=== PATIENT | female | born 1990 | race Hispanic/Latino ===

== ENCOUNTER 2021-08-17 10:29 | Emergency (ER) | payer OTHER, SELFPAY ==
--- NOTE | ~2021-08-17 | XR_ITS ---
EXAMINATION: XR hand RT min 3V EXAM DATE: 08/17/2021 10:46 INDICATION: Injured right hand punching a punching bag . TECHNIQUE: Right hand frontal, lateral and oblique projections obtained and reviewed. There is no pr ior study for comparison. FINDINGS: There is acute posttraumatic right 5th metacarpal shaft fracture with about 56 degrees of v olar angulation. No significant displacement. Skin overlying fracture site appears to be intact, prob ably closed fracture. There is overlying soft tissue swelling. IMPRESSION: Right 5th metacarpal shaft fracture, volar angulation. Reviewed, dictated and finalized at location B.
[2021-08-17 10:39] VITALS: BP 124/69; PULSE 76; RESP 16; TEMP 36.9; O2SAT 100
--- NOTE | 2021-08-17 11:14 | ED.UPPEXIN ---
HPI - Extremity Injury (Upper) General Chief Complaint: Extremity Injury, Upper Stated Complaint: INJURED R HAND Time Seen by Provider: 08/17/21 11:00 Source: patient, RN notes reviewed and old records reviewed Mode of arrival: ambulatory Limitations: no limitations History of Present Illness HPI narrative: 31 year old female who present to [facility] care with complaints of injury to her right hand which she states occurred when she was punching a punching bag last night around 2029. Patient does admit she was mad and upset when she was punching the bag, abrasions noted to 2nd and 3rd dorsal finger area, swelling ecchymosis along the dorsal aspect of her right hand at 4th and 5th metacarpals. 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 Patient states some concern that she has been without her control for the past 2 weeks over difficulty with insurance and urine test negative in clinic, states she is on continuous oral control does not have menses. Patient has been icing her hand and did take ibuprofen last night MD complaint: injury to: right and hand Onset (ago): day(s) (last pm at 2029) Other Extremity Injury: Right: hand (over dorsal 5th metacarpal) Other injuries: none Place: home Severity scale (1-10): 6 Relieving factors: cold therapy, medication and rest Exacerbating factors: movement of extremity Context: direct blow Treatments prior to arrival: cold therapy and NSAIDS Related Data Home Medications Medication Instructions Recorded Confirmed fluoxetine 08/17/21 Allergies Allergy/AdvReac Type Severity Reaction Status Date / Time No Known Allergies Allergy Verified 08/17/21 10:41 Review of Systems Review of Systems: CONSTITUTIONAL: Denies fever, chills, or sweats. EYES: Denies visual changes, redness, or discharge. ENT: Denies rhinorrhea, congestion, sore throat, or otalgia. CARDIOVASCULAR: Denies chest pain, palpitations, or edema. RESPIRATORY: Denies cough or dyspnea. GASTROINTESTINAL: Denies abdominal pain, nausea, vomiting, or diarrhea. GENITOURINARY: Denies dysuria or hematuria. SKIN: Denies rash or itching. MUSCULOSKELETAL: Denies back pain, positive for right fifth metacarpal joint pain, or myalgia. NEUROLOGIC: Denies headache, numbness, or weakness. PSYCHIATRIC: Positive for history of anxiety or depression. All systems reviewed & are unremarkable except as noted in HPI and below PMFSH Past Medical History Medical History (Updated 08/17/21 @ 12:25 by Kaycee Garrett NP) Anxiety Surgical History Surgical History (Updated 08/17/21 @ 12:25 by Kaycee Garrett NP) No history of previous surgery Family History Family History (Updated 08/17/21 @ 12:26 by Kaycee Garrett NP) Mother Hypertension Grandparent Pancreatic cancer Alzheimers disease Other Breast cancer Social History Social History (Updated 08/17/21 @ 12:27 by Kaycee Garrett NP) Smoking status: Never smoker Alcohol intake: current Alcohol use details: social Substance use: never Substance use type: does not use Living arrangements: with family Gender identity (if verbalized by the patient): Female Comments At time of signature, agree with nursing past medical, surgical, social and family history. There is no relevant family history pertinent to the presenting complaint Exam Narrative: GENERAL: Well-appearing, well-nourished, and in no acute distress. HEAD: Normocephalic, atraumatic. EYES: PERRLA and EOMI. ENT: Nares clear, no rhinorrhea or epistaxis. Mucous membranes moist.TM's normal with good light reflex, throat pink with no lesions, exudates or tonsil swelling. NECK: Supple. no lymphadenopathy CHEST: Clear to auscultation. No respiratory distress. SAO2 100% on room air HEART: Regular rate and rhythm. No murmur heard. Normal peripheral pulses. ABDOMEN: Soft, nontender, nondistended, normal active bowel
== END 2021-08-17 12:19 | disposition home or self-care (01) ==
PROVIDERS: Emergency Provider Registered Nurse
DX: S62.326A Displaced fracture of shaft of fifth metacarpal bone, right hand, initial encounter for closed fracture (principal); W22.8XXA Striking against or struck by other objects, initial encounter
CPT/HCPCS: 29125; 73130; 81025; 99214; G0463

== ENCOUNTER 2022-02-18 16:57 | Outpatient (CLI) | payer OTHER, SELFPAY ==
[2022-02-18 17:47] LABS: Hematocrit 33.7 % (37.0-47.0); Hemoglobin 12.1 g/dL (12.0-15.0); Mean Corpuscular HGB Conc 35.9 g/dl (32-36); Mean Corpuscular Hemoglobin 33.7 pg (26-34); Mean Corpuscular Volume 93.9 fl (80-100); Mean Platelet Volume 10.8 fl (7.4-10.4); Platelet Count Result 166 k/mm3 (150-375); Red Blood Count 3.59 M/mm3 (4.2-5.4); Red Cell Distribution Width 12.2 % (11.5-14.5); White Blood Count 7.7 K/mm3 (4.5-10.0)
[2022-02-18 18:29] LABS: Hepatitis B Surface Antigen Negative (Negative); Rubella IgG Antibody 85.1 IU/ML
[2022-02-18 18:38] LABS: HIV 1/2 Ab P24 Ag Result Negative (Negative)
[2022-02-19 15:25] LABS: Rapid Plasma Reagin Non-Reactive (NonReactive)
== END 2022-02-18 16:58 | disposition home or self-care (01) ==
PROVIDERS: Visit Provider Obstetrics & Gynecology
DX: Z34.90 Encounter for supervision of normal pregnancy, unspecified, unspecified trimester (principal); Z3A.00 Weeks of gestation of pregnancy not specified
CPT/HCPCS: 36415; 85027; 86592; 86703; 86762; 86850; 86900; 86901; 87340; G0432

== ENCOUNTER 2022-04-10 12:46 | Outpatient (CLI) | payer OTHER, SELFPAY ==
--- NOTE | ~2022-04-10 | US_ITS ---
EXAMINATION: US OB /maternal detail DATE: 04/10/2022 14:12 INDICATION: survey TECHNIQUE: Multiple obstetric sonographic images performed. FINDINGS: No prior studies for comparison. There is a single living fetus in vertex presentation. The placenta is anterior without placenta pre via. Placental margin measures 4.1 cm to the cervix. Amniotic fluid volume is subjectively normal. Ce rvical length is 3 cm. Placental lakes are noted. cardiac activity and movement is noted with a heart rate of 153 beats per minute. The following anatomy was identified as normal: 4 chamber heart 3 vessel cord cord insertion kidneys urinary bladder stomach spine diaphragm ventricles cisterna magna cerebellum The following biometric data were obtained: BPD: 47mm corresponds to gestational age 20 weeks 2 days. Head circumference: 175 mm corresponds to gestational age 20 weeks 0 days. Abdominal circumference: 156 mm corresponds to gestational age 20 weeks 5 days. Femur length: 34 mm corresponds to gestational age 20 weeks 6 days. Head circumference to abdominal circumference ratio: 1.13 (normal range for expected gestational age is 1.07-1.25). Estimated weight: 370 grams +/- 55 grams using Hadlock method, 87.6%. IMPRESSION: 1: Single living intrauterine with an estimated gestational age of 20weeks 3days by current ultrasound measurements, with an EDC of 08/25/2022 in vertex presentation. 2. Normal survey. Reviewed, dictated and finalized at location A. RN KEEPER IMPRESSION: 1: Single living intrauterine with an estimated gestational age of 20 weeks 3days by current ultrasound measurements, with an EDC of 08/25/2022 in ve rtex presentation. 2. Normal survey.
== END 2022-04-10 12:47 | disposition home or self-care (01) ==
PROVIDERS: Visit Provider Obstetrics & Gynecology
DX: Z36.89 Encounter for other specified antenatal screening (principal); Z3A.20 20 weeks gestation of pregnancy
CPT/HCPCS: 76805

== ENCOUNTER 2022-05-28 10:24 | Outpatient (CLI) | payer OTHER, SELFPAY ==
[2022-05-28 11:47] LABS: Hematocrit 38.4 % (37.0-47.0); Hemoglobin 13.2 g/dL (12.0-15.0)
[2022-05-28 12:00] LABS: Glucose 1 Hour PP 50gm Dose 108 mg/dL
[2022-05-28 12:41] LABS: HIV 1/2 Ab P24 Ag Result Negative (Negative)
== END 2022-05-28 10:25 | disposition home or self-care (01) ==
LOC: ANHLAB 10:27
PROVIDERS: Visit Provider Obstetrics & Gynecology
DX: Z34.90 Encounter for supervision of normal pregnancy, unspecified, unspecified trimester (principal); Z3A.00 Weeks of gestation of pregnancy not specified
CPT/HCPCS: 36415; 82947; 85014; 85018; 86703; G0432

== ENCOUNTER 2022-08-18 16:12 | Inpatient (IN) | payer OTHER, SELFPAY ==
[2022-08-18] VITALS (25 sets, daily range): BP systolic 100–157; BP diastolic 79–123; PULSE 54–117; RESP 16–18; TEMP 36.8–37.4; O2SAT 88–100
[2022-08-18] MEDS: LACTATED RINGERS 1,000 ML 125 ML IV CONT (16:56)
[2022-08-18] MEDS: OXYTOCIN 30 UNITS/NS 500 ML 30 UNITS/500 ML BAG 999 UNITS IV CONT (16:57)
[2022-08-18 16:58] LABS: Basophils Absolute Auto 0.1 K/mm3 (0.0-0.1); Basophils Percent Auto 0.6 % (0.2-1.2); Eosinophils Absolute Auto 0.3 K/mm3 (0-0.3); Eosinophils Percent Auto 2.9 % (0-4.4); Hematocrit 39.3 % (37.0-47.0); Hemoglobin 13.9 g/dL (12.0-15.0); Immature Granulocyte Absolute 0.09 K/mm3 (0.00-0.031); Immature Platelet Fraction Pct 18.6 % (0.9-11.2); Lymphocytes Percent Auto 25.6 % (18.3-44.2); Mean Corpuscular HGB Conc 35.4 g/dl (32-36); Mean Corpuscular Hemoglobin 32.9 pg (26-34); Mean Corpuscular Volume 92.9 fl (80-100); Mean Platelet Volume 13.3 fl (7.4-10.4); Monocytes Absolute Auto 0.7 K/mm3 (0.1-0.6); Monocytes Percent Auto 7.9 % (2.6-8.5); Neutrophils Absolute Auto 5.3 K/mm3 (1.3-6.7); Platelet Count Result 141 k/mm3 (150-375); Red Blood Count 4.23 M/mm3 (4.2-5.4); Red Cell Distribution Width 12.1 % (11.5-14.5); White Blood Count 8.6 K/mm3 (4.5-10.0)
[2022-08-18] MEDS: LIDOCAINE HCL 1% LOCAL INJ 20 ML VIAL (16:59)
--- NOTE | 2022-08-18 17:47 | WPDOBADMIT ---
Obstetrics - Admit Note Admission Note: record reviewed. Additions to the history and/or subsequent changes in the physical findings follow. 32 y/o G1 at 38 3/7 weeks here with contractions since 1 pm. On arrival to the hospital at 1620 the cervix was 9 cm. AVSS NST reactive with variable decelerations TOCO: contractions every 3 min ABD soft, nontender, gravid, vertex EXT nontender Cervix C/+2 A: IUP at term, active labor. P: Begin pushing.
--- NOTE | 2022-08-18 17:48 | PM.OBPRVD ---
OB - Delivery Note Procedure Delivery date: 08/18/22 Procedure: Induction method: None Delivery augmentation: Rupture of Membranes Delivery monitor: External FHT and External Uterine Route of delivery: Laceration Description: Labial Delivery repair: vicryl (3-0) Specimen: Yes (cord blood) Quantitative Blood Loss (ml): 220 Anesthesia type: Local (1% lidocaine) Disposition: PACU Complications: None Narrative: 32 y/o G1 at 38 3/7 weeks gestation who presented to the hospital with contractions. Cervix 9 cm on admission. Her labor progressed and her cervix dilated completely. She pushed with good effort and delivered the infant's head to the perineum, followed by the body. The nose and mouth were bulb suctioned. After a delay, the cord was clamped and cut. The infant was handed off the field. Cord blood was collected. The placenta delivered spontaneously and was grossly normal in appearance. The usual 3 vessel cord was noted. A right labial laceration was sustained. This was infiltrated with 10 mL of 1% lidocaine and reapproximated using 3 0 Vicryl in interrupted, figure of eight fashion. Excellent hemostasis resulted as did excellent reapproximation of the normal anatomy. Needle and instrument counts were correct. The patient was taken to recovery room in stable condition. The infant went to the nursery in stable condition. I was present and scrubbed for the entire delivery. [place] Baby Date of : 08/18/22 Time of : 17:21 Weeks of gestation at delivery: 38 Infant gender: Male Weight (pounds): 6 Weight (ounces): 5 presentation: vertex position: Right Occiput Anterior Placenta delivery description: Spontaneous and Normal Configuration Cord Vessel Description: 3 Vessels and Delayed Cord Clamping score one minute: 8 score five minutes: 9
--- NOTE | 2022-08-18 17:51 | P.DS_ITS ---
DS: Admitting Diagnosis Discharge Date 08/19/22 Admitting Diagnosis IUP at 38 3/7 weeks Labor DS: Discharge Diagnosis Discharge Diagnosis (1) (normal spontaneous vaginal delivery): Code(s): O80 - Encounter for full-term uncomplicated delivery Status: Acute OB - DS: Summary OB Procedures : None OB Procedures Intrapartum: Spontaneous Vag Delivery OB Procedures: : None Time Spent with Patient Time attestation: Total time spent providing and/or coordinating discharge services: DS: Data Data Completed and Pending Labs on day of discharge: Labs from last 24 hours 08/18/22 08/18/22 16:45 16:45 WBC 8.6 RBC 4.23 Hgb 13.9 Hct 39.3 MCV 92.9 MCH 32.9 MCHC 35.4 RDW 12.1 Plt Count 141 L MPV 13.3 H Immature Gran % (Auto) 1.0 H Neut % (Auto) 62.0 Lymph % (Auto) 25.6 [place] % (Auto) 7.9 Eos % (Auto) 2.9 Baso % (Auto) 0.6 Lymph # (Auto) 2.20 [place] # (Auto) 0.7 H Eos # (Auto) 0.3 Baso # (Auto) 0.1 Abs Immat Gran (auto) 0.09 H Absolute Neuts (auto) 5.3 Absolute Nucleated RBC 0.0 Nucleated RBC % 0.0 % Immature Plt Fraction 18.6 H RPR Pending Discharge Plan Discharge Attending physician on discharge: Josafat Day Discharging Clinician: Josafat Day Patient Disposition: Home, Self-Care Activity: pelvic rest Diet: regular Discharge Instructions: Call or return if temperature above 100.4? F, increased abdominal pain, increased vaginal bleeding or any new problems. Stand Alone Forms: General Discharge Information Follow-up/Referrals: Josafat Day MD [Physician] - 6 Weeks Discharge Medications: New ibuprofen 600 mg tablet 600 mg PO Q6H PRN (Reason: cramps) Qty: 30 0RF sertraline 50 mg tablet 50 mg PO DAILY Qty: 30 3RF Discontinued fluoxetine Date of admission: 08/18/22 16:12 Primary Care Provider: PHYSICIAN NOT ON STAFF,NONSTAFF Admitting Provider: Josafat Day Attending physician on admission: Josafat Day Condition: Stable
[2022-08-18] MEDS: IBUPROFEN 600 MG TABLET PO (19:00)
--- NOTE | 2022-08-18 19:37 | LDADM ---
This patient, Alessandra Gonzalez, was admitted to Labor/Delivery/Recovery 104 on 08/18/22 at 16:12. Plans for labor, pain management and were discussed with patient. Patient/family oriented to hospital policies and general routines including ID bracelet, bed and alarms, visiting hours, pain management, procedures, bathroom and other care routines, personal items, smoking policy, room service/diet and guest tray routines, security routines, and visiting hours. Patient/Family are encouraged to report perceived risks to care and to ask questions if they do not understand what they are told or what they should do. See OBIX for further documentation.
[2022-08-18] MEDS: WITCH HAZEL 40 PADS 1 PAD TOPICAL (19:54)
[2022-08-18] MEDS: BENZOCAINE 20% AER SPR (*SP) 56 GM CAN 1 SPRAY TOPICAL (19:54)
[2022-08-18 20:16] LABS: HIV 1/2 Ab P24 Ag Result Negative (Negative)
--- NOTE | 2022-08-18 21:23 | OBPPTRN ---
08/18/2022 at 2004 Patient transferred to post room #277 in wheelchair. Support person present. 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 I discussed security measures with Akbar her significant other and he states understanding.
[2022-08-19] MEDS: ACETAMINOPHEN 325 MG TABLET 650 MG PO ×2 (00:21→08:56)
[2022-08-19] MEDS: IBUPROFEN 600 MG TABLET PO ×3 (04:29→19:20)
[2022-08-19 05:04] LABS: Hematocrit 33.1 % (37.0-47.0); Hemoglobin 11.4 g/dL (12.0-15.0)
[2022-08-19 07:20] VITALS: BP 121/94; PULSE 66; RESP 16; TEMP 36.9; O2SAT 97
[2022-08-19 08:00] VITALS: PULSE 66; RESP 16; O2SAT 97
[2022-08-19] MEDS: MULTIVIT/MIN/PREN/FOL AC/IRON TABLET 1 TAB PO (08:57)
[2022-08-19] MEDS: DOCUSATE SODIUM 100 MG CAPSULE PO ×2 (08:58→23:00)
[2022-08-19] MEDS: SERTRALINE HCL 50 MG TABLET PO (08:58)
[2022-08-19 11:29] LABS: Rapid Plasma Reagin Non-Reactive (NonReactive)
[2022-08-19 12:05] VITALS: BP 122/79; PULSE 67; RESP 16; TEMP 37.1; O2SAT 98
--- NOTE | 2022-08-19 12:43 | PC.NURSE ---
[id number] Purposefully rounded to assess needs. Mother led conversation of how has gone so far and her experience. Encouraged understanding of the benefits of skin to skin (demonstrating unwrapping infant and placing upright on her chest), stimulating with massage touch, changing positions to encourage wakefulness, how to watch for early feeding cues, responsive feeding, feeding on demand (aiming for 8-12 times in 24 hours, about every 2-3 hours), milk production, building/maintaining a milk supply, duration of feeding, signs of adequate intake/output and how to record on the feeding sheet. Mother voiced understanding and has practiced this knowledge. Mother states latched on the areola and there is evidence of poor latches with purple coloration on the areola on the right breast. [id number] demonstrated big, open wide gape and shows such great efforts to attempt to latch. Reviewed positioning and ear, shoulder, hip alignment, supporting the breast to facilitate a deep latch, asymmetrical latch (off-center), leading with the chin with a big, open, wide gape and body close to mother. latched to the right breast in cross cradle position. Education given to mother of how to visualize suck/swallow ratios and listen for drinking at the breast. Swallows are not seen, nice rounded cheek line, good rocking motions are seen. was able to maintain latch without discomfort to mother ( mother is unsure of what she feels is to be expected). Nipple care reviewed with optimal latch and good positioning. When infant was detached it was evident that the had made a teat out of part of the nipple. Attempts were made with and without the nipple shield to latch infant to the left breast. was unable to maintain an optimal latch. Mother was able to hand express colostrum and it was syringe fed 8mls. Father of baby is helpful and supportive. Resources used to facilitate learning were used with the tool. Mother voiced understanding of skin to skin, stimulating with massage touch, responsive feedings, hand expressed colostrum, talking to to encourage if it has been 2 -2.5 hours since the start of the last , to call if infant does not latch, or if there is discomfort with . Resource provided with name written on the white board and offer of assistance. Parents voiced understanding of information, demonstrated learning and will call if there is a request for assistance. Reported to the primary RN. [id number] Patient was assessed for correct placement, flange size, to pump for comfort and nipple stretching/stimulation for adequate milk production every 3 hours (8 times in 24 hours) 1-2 times at night. Mother voiced understanding of the education shared along with mom and baby guide for additional resource information. Reported to the primary RN.
--- NOTE | 2022-08-19 12:57 | PM.OBPNVD ---
OB - PN: Subj Subjective Date/time seen: 08/19/22 12:57 Narrative: Pain OK. Wants circumcision for son. Would like to go home. OB - PN: Obj Data Labs 08/19/22 04:05 Labs: Laboratory Results - last 24 hr 08/18/22 08/18/22 08/18/22 16:45 16:45 16:45 WBC 8.6 RBC 4.23 Hgb 13.9 Hct 39.3 MCV 92.9 MCH 32.9 MCHC 35.4 RDW 12.1 Plt Count 141 L MPV 13.3 H Immature Gran % (Auto) 1.0 H Neut % (Auto) 62.0 Lymph % (Auto) 25.6 [place] % (Auto) 7.9 Eos % (Auto) 2.9 Baso % (Auto) 0.6 Lymph # (Auto) 2.20 [place] # (Auto) 0.7 H Eos # (Auto) 0.3 Baso # (Auto) 0.1 Abs Immat Gran (auto) 0.09 H Absolute Neuts (auto) 5.3 Absolute Nucleated RBC 0.0 Nucleated RBC % 0.0 % Immature Plt Fraction 18.6 H RPR Non-reactive HIV 1&2 Ab/P24 Ag 4thGn Blood Type O Positive Antibody Screen Negative 08/18/22 08/19/22 19:18 04:05 WBC RBC Hgb 11.4 L Hct 33.1 L MCV MCH MCHC RDW Plt Count MPV Immature Gran % (Auto) Neut % (Auto) Lymph % (Auto) [place] % (Auto) Eos % (Auto) Baso % (Auto) Lymph # (Auto) [place] # (Auto) Eos # (Auto) Baso # (Auto) Abs Immat Gran (auto) Absolute Neuts (auto) Absolute Nucleated RBC Nucleated RBC % % Immature Plt Fraction RPR HIV 1&2 Ab/P24 Ag 4thGn Negative Blood Type Antibody Screen OB - PN A/P Plan Comments: A: PPD#1, doing well. P: Reviewed circ. Home to f/u 6 weeks. Exam Psych: Other: AVSS ABD soft, nontender, fundus firm EXT nontender
--- NOTE | 2022-08-19 14:22 | OBPPTRN ---
0728-Patient transferred to post room #290 via wheelchair. Support person present. Oriented to unit, room, information board, rooming in, admission packet and security measures. Patient verbalizes understanding.
[2022-08-19 17:00] VITALS: BP 127/87; PULSE 64; RESP 16; TEMP 36.8; O2SAT 98
--- NOTE | 2022-08-19 17:24 | PC.NURSE ---
[id number] Consulted with patient to assess needs related to . Mother works well with her infant. Reviewed working with , supporting breast and how to protect the nipples with an optimal deep latch, good positioning, and good hand washing. Encouraged understanding the benefits of skin to skin. Mother is demonstrating the expertise of hand expression. She has expressed 9mls of yellow colostrum. Reviewed positioning and alignment, supporting breast, off-centered (asymmetrical latch) and leading with the chin with big, open, wide gape. Mother was assisted with practicing with and without the nipple shield. The left nipple is cracked and bleeding. Reviewed keeping her hands and breast clean and dry. Mother expressed colostrum to dry on the left nipple. Infant latched to the left breast in football position with the nipple shield. Infant is sleepy and reluctant after the circumcision. was able to maintain latch without discomfort to mother with the nipple shield. Nipple care reviewed with optimal latch, good positioning and using clean hands when feeding her infant and touching her breast. Infant was syringe fed 6mls of colostrum. Mother voiced understanding of the education shared, to call for assistance if the infant does not latch or if there is discomfort with with understanding to attempt to breastfeed on demand. Reported to the primary RN.
[2022-08-19 23:00] VITALS: BP 111/76; PULSE 67; RESP 16; TEMP 36.7
[2022-08-20] MEDS: IBUPROFEN 600 MG TABLET PO (05:47)
[2022-08-20] MEDS: ACETAMINOPHEN 325 MG TABLET 650 MG PO (05:48)
[2022-08-20 08:15] VITALS: BP 133/86; PULSE 75; RESP 16; TEMP 36.5; O2SAT 99
--- NOTE | 2022-08-20 08:46 | PM.OBPNVD ---
OB - PN: Subj Subjective Date/time seen: 08/20/22 08:46 Narrative: She decided to stay again overnight last night. Now she would like to go home. OB - PN: Obj Data Labs 08/19/22 04:05 Labs: Laboratory Results - last 24 hr 08/18/22 16:45 RPR Non-reactive OB - PN A/P Plan Comments: A: PPD#2, doing well. P: Home to f/u 6 weeks. Exam Psych: Other: AVSS ABD soft, nontender, fundus firm EXT nontender
[2022-08-20] MEDS: WITCH HAZEL 40 PADS 1 PAD TOPICAL (09:49)
[2022-08-20] MEDS: DOCUSATE SODIUM 100 MG CAPSULE PO (09:49)
[2022-08-20] MEDS: MULTIVIT/MIN/PREN/FOL AC/IRON TABLET 1 TAB PO (09:49)
[2022-08-20] MEDS: SERTRALINE HCL 50 MG TABLET PO (09:49)
--- NOTE | 2022-08-20 10:00 | PC.NURSE ---
Patient viewed the discharge video Mother & Baby Care, The First Two Weeks . Patient was given the opportunity and encouraged to ask questions. Patient verbalized understanding of information shared and has been given the mother/baby guide for home reference.
--- NOTE | 2022-08-20 10:58 | PC.NURSE ---
[id number] Discussed with mother and the supportive father of baby about a plan to go home. Mother will hand express and pump to protect her milk supply. Mother plans to attempt to latch infant to the breast with and without a nipple shield after her nipples are not as tender. She has multiple purple chavez around the base of the nipple as mother describes as latches not done optimally. Reviewed pumping every three hours in a 24 hour period. Mother will hand express as well until the milk is to full volume. Mother led the conversation with her experience and plan to feed her so far and her ability to continue with the plan of attempting to breastfeed, pump, and supplement to feed infant. Reminded parents to use good handwashing technique to prevent infection. Mother is feeding appropriately for growth of and understands stimulating infant to eat if needed. Infant has had appropriate feedings in the last 24 hours meets the outcomes for weight, output and jaundice at this time. Mother states she is confident to continue feeding her at home, when to call for assistance and denies any additional assistance or education at this time. Reinforced understanding of milk production, transition of milk, signs of adequate intake, transition of stool, prevention/relief of engorgement, responsive watching for feeding cues feeding on demand, medication information reviewed per [employer] and when to call a provider using the resource of the mom and baby guide. Mother is also in contact with an IBCLC in the community and has an appt on Friday. Mother voiced understanding of the education shared. Reported to the primary RN.
[2022-08-21 09:29] VITALS: BP 137/83; PULSE 68; RESP 20; TEMP 37.3; O2SAT 98
== END 2022-08-20 10:50 | disposition home or self-care (01) | DRG 807 ==
LOC: ANHLDR 17:52 → ANHOB2 20:57
PROVIDERS: Admitting Provider Obstetrics & Gynecology; Visit Provider Obstetrics & Gynecology
DX: O70.0 First degree perineal laceration during delivery (principal); Z37.0 Single live birth; Z3A.38 38 weeks gestation of pregnancy
CPT/HCPCS: 36415; 85014; 85018; 85025; 85055; 86592; 86703; 86850; 86900; 86901; A9270; G0432; J2590; J2795; J7120

== ENCOUNTER 2022-09-02 16:41 | Outpatient (CLI) | payer OTHER, SELFPAY ==
[2022-09-06 04:14] LABS: Prolactin 193.1 ng/mL (***)
== END 2022-09-02 16:42 | disposition home or self-care (01) ==
PROVIDERS: Visit Provider Obstetrics & Gynecology
DX: Z39.1 Encounter for care and examination of lactating mother (principal)
CPT/HCPCS: 36415; 84146; 84443